=== PATIENT | male | born 1975 | race Caucasian/White ===

== ENCOUNTER → 2017-01-01 | Outpatient (CLI) | payer OTHER | LOC: RAD 13:49 | DX: E04.1 Nontoxic single thyroid nodule (principal) ==

== ENCOUNTER 2023-11-22 21:31 | Emergency (ER) | payer SELFPAY ==
[~2023-11-22] VITALS: Ht 188 cm; Wt 127.3 kg
[2023-11-22] MEDS ORDERED: LISINOPRIL20 MG PO (22:43)
[2023-11-22] MEDS ORDERED: HCTZ 25MG25 MG PO (22:44)
[2023-11-22 23:05] LABS: BASO # 0.03 K/mm3 (0.02-0.10); EOS # 0.05 K/mm3 (0.04-0.40); EOS % 0.5 % (0.0-4.0); HEMATOCRIT 51.3 % (42.0-52.0); LYMPH# 3.03 K/mm3 (1.50-4.00); MEAN CELL VOLUME 91 fl (78-100); MEAN CORPUSCULAR HEMOGLOBIN 30 pg (27-31); MEAN CORPUSCULAR HGB CONC 33 g/dL (33-37); MEAN PLATELET VOLUME 10.3 fl (7.4-10.4); MONO # 0.76 K/mm3 (0.20-0.80); NEU # 5.52 K/mm3 (1.40-6.50); PLATELET COUNT 330 K/mm3 (130-400); RED BLOOD COUNT 5.65 M/mm3 (4.20-5.60); RED CELL DISTRIBUTION WIDTH 13.8 % (11.5-14.5); WHITE BLOOD COUNT 9.4 K/mm3 (4.8-10.8)
[2023-11-22 23:13] LABS: ALBUMIN 4.6 g/dL (3.5-5.0); SODIUM 139 mmol/L (136-145)
[2023-11-22 23:15] LABS: CALCIUM 10.1 mg/dL (8.3-10.5)
[2023-11-22 23:16] LABS: GLUCOSE 137 mg/dL (75-110); TOTAL PROTEIN 8.3 g/dL (6.4-8.3)
[2023-11-22 23:17] LABS: CARBON DIOXIDE 25 mmol/L (22-29)
[2023-11-22 23:18] LABS: TOTAL BILIRUBIN 1.3 mg/dL (0.2-1.2)
[2023-11-22 23:21] LABS: AST-SGOT 38 U/L (5-34)
[2023-11-22 23:23] LABS: ALT/SGPT 59 U/L (0-55); LIPASE 144 U/L (8-78)
[2023-11-22 23:24] LABS: ACETAMINOPHEN < 1 ug/mL
[2023-11-23 04:10] VITALS: BP 148/97
== END 2023-11-23 04:15 | disposition home or self-care (01) ==
LOC: ED 21:31
PROVIDERS: Physician Assistant
DX: T45.0X1A Poisoning by antiallergic and antiemetic drugs, accidental (unintentional), initial encounter (principal); T46.4X1A Poisoning by angiotensin-converting-enzyme inhibitors, accidental (unintentional), initial encounter; N19 Unspecified kidney failure; E80.7 Disorder of bilirubin metabolism, unspecified; R74.01 Elevation of levels of liver transaminase levels; R79.89 Other specified abnormal findings of blood chemistry; E87.6 Hypokalemia
CPT/HCPCS: J7030